=== PATIENT | female | born 1970 | race Caucasian/White ===

== ENCOUNTER 2017-08-25 09:26 | Emergency (ER) | payer MEDICAID, OTHER ==
[2017-08-25] MEDS ORDERED: SODIUM CHLORIDE 0.9% 1,000 ML IV ONE (11:17)
[2017-08-25] MEDS ORDERED: DEXAMETHASONE 10 MG/ML VIAL IVP STA (11:17)
[2017-08-25] MEDS ORDERED: KETOROLAC 60 MG/2 ML VIAL IVP STA (11:17)
[2017-08-25] MEDS ORDERED: diphenhydrAMINE INJ 50 MG/ML VIAL IVP STA (11:18)
[2017-08-25] MEDS ORDERED: PROCHLORPERAZINE 10 MG/2 ML VIAL IVP STA (11:18)
--- NOTE | 2017-08-25 11:20 | ED Physician Documentation ---
PD HPI HEADACHE - Stated complaint Stated Complaint: BANSAL - Chief complaint Chief Complaint: Neuro - History obtained from History obtained from: Patient - History of Present Illness Timing - onset: Last night Timing - onset during: Rest Timing - duration: Hours Timing - details: Abrupt onset, Still present Worst headache ever?: No: Worst headache ever? Location: Global Quality: Throbbing Associated symptoms: Nausea, Vomiting, Vision changes. No: Weakness, Numbness, Syncope, Seizure, Eye pain Improved by: Rest, Dark room, Quiet Worsened by: Light, Noise, Moving Contributing factors: No: Anticoagulated Similar symptoms before: Diagnosis (migraine) Recently seen: Not recently seen - Additional information Additional information: 46-year-old female with history of migraine headaches as recently traveled to see her grandson in [place] and now she has developed a migraine headache last night. She states that she took 2 doses of her Imitrex without relief she vomited and has been vomiting throughout the night. She does acknowledge a aura prior to the onset of the headache with bright scribbles. Review of Systems Constitutional: denies: Fever, Chills, Myalgias Eyes: reports: Photophobia. denies: Decreased vision Ears: denies: Ear pain Nose: denies: Rhinorrhea / runny nose, Congestion Throat: denies: Sore throat Cardiac: denies: Chest pain / pressure, Palpitations Respiratory: denies: Dyspnea, Cough GI: reports: Nausea, Vomiting. denies: Abdominal Pain : denies: Dysuria, Frequency Skin: denies: Rash Musculoskeletal: reports: Neck pain. denies: Back pain, Extremity pain Neurologic: reports: Headache. 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: Hysterectomy - Present Medications Home Medications: Ambulatory Orders Medication Instructions Recorded Confirmed traMADol [Ultram] 50 tab PO BID 10/26/15 08/25/17 Sumatriptan Succinate [Imitrex] 50 mg PO PRN PRN 04/30/16 08/25/17 - Allergies Allergies/Adverse Reactions: Allergies Allergy/AdvReac Type Severity Reaction Status Date / Time Sulfa (Sulfonamide Allergy Intermediate Hives Verified 06/16/16 10:17 Antibiotics) - Social History Does the pt smoke?: No Smoking Status: Never smoker Does the pt drink ETOH?: No Does the pt have substance abuse?: No - Immunizations Immunizations are current?: Yes - POLST Patient has POLST: No PD ED PE NORMAL - Vitals Vital signs reviewed: Yes (hypertensive mild ) - General General: Well developed/nourished, Other (The patient appears to be in pain with locomotive mechanic tone and flat affect. ) - HEENT HEENT: Atraumatic, PERRL, EOMI, Ears normal, Moist mucous membranes, Pharynx benign, Dentition benign - Neck Neck: Supple, no meningeal sign, No bony TTP - Cardiac Cardiac: RRR, No murmur - Respiratory Respiratory: No respiratory distress, Clear bilaterally - Abdomen Abdomen: Soft, Non tender - Back Back: No CVA TTP, No spinal TTP - Derm Derm: Normal color, Warm and dry, No rash - Extremities Extremities: No deformity, No edema - Neuro Neuro: No motor deficit, No sensory deficit - Psych Psych: Normal mood Results - Vitals Vitals: Vital Signs - 24 hr 08/25/17 08/25/17 08/25/17 09:31 10:49 11:48 Temperature 36.2 C L 36.4 C L Heart Rate 95 83 89 Respiratory 18 15 18 Rate Blood Pressure 121/88 H 108/79 115/87 H O2 Saturation 98 100 100 Oxygen O2 Source Room air PD MEDICAL DECISION MAKING - ED course Complexity details: considered differential, d/w patient ED course: 46-year-old female with migraine is been resistant to her Imitrex has typical symptoms with aura prior and vomiting. She has no focal neurologic findings. She is administered a cocktail of intravenous Compazine Benadryl Toradol dexamethasone and saline. Departure - Departure Disposition: 01 Home, Self Care Clinical Impression: Migraine Qualifiers: Migraine type: with aura Status migrainosus presence: without status migrainosus Intractability: not intractable Qualified Code(s): G43.109 - Migraine with aura, not intractable, without status migrainosus Condition: Stable Instructions: ED Headache Migraine Follow-Up: Maximo Franklin MD [Provider Admit Priv/Credential] -
[2017-08-25] MEDS ORDERED: diphenhydrAMINE INJ 50 MG/ML VIAL ONE (12:17)
[2017-08-25] MEDS ORDERED: PROCHLORPERAZINE 10 MG/2 ML VIAL ONE (12:17)
[2017-08-25] MEDS ORDERED: DEXAMETHASONE 10 MG/ML VIAL ONE (12:18)
[2017-08-25] MEDS ORDERED: KETOROLAC 30 MG/ML VIAL ONE (12:18)
[2017-08-25 13:10] VITALS: BP 108/72
== END 2017-08-25 13:10 | disposition home or self-care (01) ==
LOC: ED 09:26
DX: G43.109 Migraine with aura, not intractable, without status migrainosus (principal)
CPT/HCPCS: 96374; 96375; 99283; 99284

== ENCOUNTER 2020-10-07 13:12 | Outpatient (CLI) | payer MEDICAID ==
--- NOTE | 2020-10-07 14:32 | XRAY Report ---
PROCEDURE: Shoulder 3 View RT INDICATIONS: PAIN IN RT SHOULDER TECHNIQUE: 3 views of the shoulder were acquired. COMPARISON: None. FINDINGS: Bones: No fractures or dislocations. No suspicious bony lesions. Visualized ribs appear intact. Soft tissues: No suspicious soft tissue calcifications. IMPRESSION: No trauma found, source of current right shoulder pain is not identified. Reviewed by: Tony Mclaughlin MD on 10/07/2020 2:31 PM PST Approved by: Tony Mclaughlin MD on 10/07/2020 2:31 PM PST Station ID: [id number]
--- NOTE | 2020-10-07 17:14 | MRI Report ---
PROCEDURE: Shoulder RT W/O INDICATIONS: PAIN IN RT SHLDR TECHNIQUE: Noncontrast oblique coronal T2 fast spin echo with fat saturation, oblique sagittal T1 spin echo and T2 fast spin echo with fat saturation, axial T1 spin echo and T2 fast spin echo with fat saturation t hrough the shoulder. COMPARISON: None. FINDINGS: Image quality: Excellent. Rotator cuff: Tendinosis and low-grade articular and bursal surface partial-thickness tear involving distal supraspinatus at its insertion on humeral head is seen extending to musculotendinous junction. Distal infraspinatus tendinosis is noted. Distal subscapularis tendinosis and low to moderate grade intrasubstance partial thickness tear is seen. No full-thickness rotator cuff tendon rupture. No rota tor cuff muscle atrophy on sagittal images. Bones and bursae: No bone marrow contusions or fractures. [id number] acromioclavicular joint o steoarthritic changes are noted with downward osteophyte formation depressing on musculotendinous lili ction of supraspinatus. The acromion demonstrates conventional anatomy, without an os acromiale. No pathologic subacromial/subdeltoid bursal fluid is present. Capsule and soft tissues: In the absence of intra-articular contrast, the labrum and glenohumeral li gaments appear intact. The long head of the biceps tendinosis is seen. The rotator interval appears normal, without fibrosis. The coracohumeral ligament is normal in thickness. IMPRESSION: 1. Tendinosis and low-grade articular and bursal surface partial-thickness tear involving distal supr aspinatus extending to musculotendinous junction. Distal infraspinatus tendinosis. Distal subscapular is tendinosis and low to moderate grade intrasubstance partial thickness tear. No full-thickness rota tor cuff tendon rupture. 2. Mild to moderate acromioclavicular joint osteoarthritis. 3. No gross focal labral tear. 4. Proximal intra-articular portion of long head of biceps tendinosis. Reviewed by: Eugenio Bocanegra MD on 10/07/2020 5:12 PM PST Approved by: Eugenio Bocanegra MD on 10/07/2020 5:12 PM PST Station ID: [id number]
== END 2020-10-07 13:13 | disposition home or self-care (01) ==
LOC: DI 13:12
PROVIDERS: ATTEND Nurse Practitioner Family
DX: M75.111 Incomplete rotator cuff tear or rupture of right shoulder, not specified as traumatic (principal); M19.011 Primary osteoarthritis, right shoulder; M75.81 Other shoulder lesions, right shoulder

== ENCOUNTER 2021-01-30 08:02 | Outpatient (CLI) | payer MEDICAID ==
--- NOTE | 2021-01-31 08:53 | Mammography Report ---
BILATERAL DIGITAL SCREENING MAMMOGRAM 3D/2D: 01/30/2021 CLINICAL: Routine screening. Comparison is made to exam dated: 03/16/2016 mammogram - [facility]. There are scat tered fibroglandular elements in both breasts. No significant masses, calcifications, or other findings are seen in either breast. There has been no significant interval change. IMPRESSION: NEGATIVE There is no mammographic evidence of malignancy. A 1 year screening mammogram is recommended. This exam was interpreted at Station ID: [id number]. NOTE: For mammograms, a report in lay terms will be sent to the patient. Approximately 15% of breast malignancies will not be visualized mammographically. In the management of a palpable breast mass, a negative mammogram must not discourage biopsy of a clinically suspicious lesion. Electronically Signed By: Carroll Frias M.D. atnica/penrad:01/30/2021 12:12:11 ACR BI-RADS Category 1: Negative 3341F PARENCHYMAL PATTERN: (A) - The breast(s) demonstrate(s) scattered fibroglandular densities. BI-RADS CATEGORY: (1) - 1 RECOMMENDATION: (ANNUAL) - Recommend routine annual screening mammography. [id number] 1 year screening LATERALITY: (B)
== END 2021-01-30 08:03 | disposition home or self-care (01) ==
LOC: DI.N 08:02
PROVIDERS: ATTEND Nurse Practitioner Family
DX: Z12.31 Encounter for screening mammogram for malignant neoplasm of breast (principal)

== ENCOUNTER 2022-05-02 10:39 | Outpatient (CLI) | payer MEDICAID ==
--- NOTE | 2022-05-02 11:44 | XRAY Report ---
PROCEDURE: Chest 2 View X-Ray INDICATIONS: COUGH, UNSPECIFIED TECHNIQUE: 2 view(s) of the chest. COMPARISON: None. FINDINGS: Surgical changes and devices: None. Lungs and pleura: No pleural effusions or pneumothorax. Lungs are clear. Mediastinum: Mediastinal contours are normal. Heart size is normal. Bones and chest wall: No suspicious bony abnormalities. Soft tissues appear unremarkable. IMPRESSION: Normal two-view chest x-ray Reviewed by: Shaka Horn MD on 05/02/2022 10:43 AM ROSE Approved by: Shaka Horn MD on 05/02/2022 10:43 AM ROSE Station ID: [id number]
== END 2022-05-02 10:40 | disposition home or self-care (01) ==
LOC: DI 10:39
PROVIDERS: ATTEND Nurse Practitioner Family
DX: R05.9 Cough, unspecified (principal)